=== PATIENT | male | born 1990 | race Caucasian/White ===

== ENCOUNTER 2017-07-20 11:11 | Emergency (ER) | payer OTHER ==
[~2017-07-20] VITALS: Ht 170.2 cm; Wt 70.3 kg
[2017-07-20 11:11] VITALS: BP 114/55
[2017-07-20] MEDS ORDERED: IBUP-1957 PO (11:38)
== END 2017-07-20 12:48 | disposition home or self-care (01) ==
LOC: ER 11:31
DX: J11.1 Influenza due to unidentified influenza virus with other respiratory manifestations (principal); F17.200 Nicotine dependence, unspecified, uncomplicated
CPT/HCPCS: 99282; 99406; A4606; Z7610

== ENCOUNTER 2019-05-27 13:47 | Emergency (ER) | payer OTHER ==
[~2019-05-27] VITALS: Ht 170.2 cm; Wt 68.0 kg
[~2019-05-27 13:47] MED LIST: IBUP-1957 PO
--- NOTE | 2019-05-27 13:54 | NUR ---
PT CAME INTO THE ED C/O DIZZINESS, +NV X TODAY, ANXIETY. PY AAOX4, VSS, BREATHING EVEN AND UNLABORED ON ROOM AIR. PT CONNECTED TO THE MONITOR AND POX.
[2019-05-27] MEDS ORDERED: LORAZEPAM 1 MG TABLET PO ONE (14:00)
[2019-05-27] MEDS ORDERED: LORAZEPAM 0.5 MG TABLET ONE (14:02)
--- NOTE | 2019-05-27 14:04 | NUR ---
FOSTER PA AT BEDSIDE FOR EVAL.
[2019-05-27 14:34] LABS: BASOPHILS % (AUTO) 0.5 % (0.0-2.0); EOSINOPHILS % (AUTO) 1.6 % (0.0-6.0); HEMATOCRIT 41 % (39-51); HEMOGLOBIN 14.1 g/dL (13.5-17.5); LYMPHOCYTES # (AUTO) 1.7 /CMM (0.8-4.8); LYMPHOCYTES % (AUTO) 27.4 % (20.0-44.0); MEAN CORPUSCULAR HGB CONC 34 g/dl (31.0-36.0); MEAN CORPUSCULAR VOLUME 83 fL (80-96); MONOCYTES # (AUTO) 0.6 /CMM (0.1-1.30); MONOCYTES % (AUTO) 9.3 % (2.0-12.0); NEUTROPHILS # (AUTO) 3.8 /CMM (1.8-8.9); NEUTROPHILS % (AUTO) 61.2 % (43.0-81.0); PLATELET COUNT (AUTO) 291 /CMM (150-450); RED BLOOD CELL COUNT(AUTO) 4.93 MIL/uL (4.5-6.0); WHITE BLOOD COUNT (AUTO) 6.2 K/uL (4.3-11.0)
[2019-05-27 14:44] LABS: CREATININE 0.6 mg/dL (0.6-1.3); POTASSIUM 3.6 mmol/L (3.5-5.1)
[2019-05-27 15:08] VITALS: BP 130/76
--- NOTE | 2019-05-27 15:08 | NUR ---
Patient discharged to home in stable condition. Written and verbal after care instructions given. Patient verbalizes understanding of instruction.
== END 2019-05-27 15:08 | disposition home or self-care (01) ==
LOC: ER 13:52
DX: F41.9 Anxiety disorder, unspecified (principal); F17.200 Nicotine dependence, unspecified, uncomplicated
CPT/HCPCS: 36415; 80048-TC; 85025-TC

== ENCOUNTER 2019-08-21 22:30 | Emergency (ER) | payer OTHER ==
[~2019-08-21] VITALS: Ht 170.2 cm; Wt 68.9 kg
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
[2019-08-21] MEDS ORDERED: IV NS 0.9% 1,000 ML BAG IV ONE (23:00)
[2019-08-21] MEDS ORDERED: METOCLOPRAMIDE HCL 10 MG/2 ML VIAL IV ONE (23:00)
[2019-08-21] MEDS ORDERED: METOCLOPRAMIDE HCL 10 MG/2 ML VIAL ONE (23:02)
--- NOTE | 2019-08-21 23:05 | NUR ---
PT BROUGHT BY RADIOLOGY TO CT
--- NOTE | 2019-08-21 23:40 | NUR ---
PT REFUSING TO FINISH IV FLUIDS. DR. MITCHELL MADE AWARE. PT MEDICALLY CLEARED FOR DISCHARGE.
--- NOTE | 2019-08-21 23:47 | NUR ---
Patient discharged to home in stable condition. Written and verbal after care instructions given. Patient verbalizes understanding of instruction.IV removed. Catheter intact and site benign. Pressure and 4x4 applied to site. No bleeding noted.Pt ambulatory with a steady gait
[2019-08-21 23:49] VITALS: BP 110/82
== END 2019-08-21 23:49 | disposition home or self-care (01) ==
LOC: ER 22:33
DX: F41.9 Anxiety disorder, unspecified (principal); R51 Headache; F32.9 Major depressive disorder, single episode, unspecified; F17.200 Nicotine dependence, unspecified, uncomplicated; Z79.899 Other long term (current) drug therapy
CPT/HCPCS: 70450; 93005; 96374; 99284; A4216; J2765; J7030

== ENCOUNTER 2022-04-13 22:22 | Emergency (ER) | payer OTHER ==
[~2022-04-13] VITALS: Ht 170.2 cm; Wt 72.6 kg
--- NOTE | 2022-04-13 23:30 | NUR ---
BIB PARTNER FOR C/O L KNEE PAIN AND INJURY , UNABLE TO EXTEND THE KNEE S/P FALL. PLACED COMFORTABLY IN BED. VITALS CHECKED.
[2022-04-13] MEDS ORDERED: HYDROMORPHONE INJ 2 MG/ML DISP.SYRIN ONE (23:59)
[2022-04-14] MEDS ORDERED: ONDANSETRON 4 MG TAB.RAPDIS ONE
[2022-04-14] MEDS ORDERED: ONDANSETRON 4 MG TAB.RAPDIS SL ONE
[2022-04-14] MEDS ORDERED: HYDROMORPHONE INJ 2 MG/ML DISP.SYRIN IM ONE
--- NOTE | 2022-04-14 | NUR ---
FOR XRAY OF KNEE. PATIENT CANNOT TOLERATE PAIN. REQUESTING PAIN MEDS PRIOR TO XRAY
[2022-04-14] MEDS ORDERED: ONDA4TAB5 PO (01:01)
[2022-04-14] MEDS ORDERED: HYDR-4209 PO (01:01)
[2022-04-14 02:12] VITALS: BP 118/72
== END 2022-04-14 02:13 | disposition home or self-care (01) ==
LOC: ER 22:24
DX: S83.92XA Sprain of unspecified site of left knee, initial encounter (principal); F41.9 Anxiety disorder, unspecified; F32.A Depression, unspecified; F17.210 Nicotine dependence, cigarettes, uncomplicated; Z79.1 Long term (current) use of non-steroidal anti-inflammatories (NSAID); X58.XXXA Exposure to other specified factors, initial encounter; Y93.89 Activity, other specified; Y92.89 Other specified places as the place of occurrence of the external cause; Y99.8 Other external cause status
CPT/HCPCS: 99284; 73552; 73560; 73590; 29505; 96372; J1170; A6403; Q0162

== ENCOUNTER → 2024-01-20 | Emergency (ER) | payer OTHER ==
[~2024-01-20] VITALS: Ht 170.2 cm; Wt 72.6 kg
[~2024-01-20] MED LIST changes: +HYDR-4209 PO; +MECL-159 PO; +MECLIZINE HCL 25 MG TABLET ONE; +ONDA4TAB5 PO
[2024-01-20 19:02] LABS: BASOPHILS # (AUTO) 0.1 K/uL (0.0-0.2); BASOPHILS % (AUTO) 0.9 % (0.0-2.0); EOSINOPHILS # (AUTO) 0.1 K/uL (0.0-0.7); EOSINOPHILS % (AUTO) 1.6 % (0.0-6.0); HEMATOCRIT 40 % (39-51); HEMOGLOBIN 13.8 g/dL (13.5-17.5); LYMPHOCYTES # (AUTO) 2.5 K/uL (0.8-4.8); LYMPHOCYTES % (AUTO) 30.6 % (20.0-44.0); MEAN CORPUSCULAR HEMOGLOBIN 29 PG (26.0-33.0); MEAN CORPUSCULAR HGB CONC 35 g/dl (31.0-36.0); MEAN CORPUSCULAR VOLUME 83 fL (80-96); MONOCYTES # (AUTO) 0.5 K/uL (0.1-1.30); MONOCYTES % (AUTO) 6.5 % (2.0-12.0); NEUTROPHILS % (AUTO) 60.4 % (43.0-81.0); PLATELET COUNT (AUTO) 352 K/uL (150-450); RED BLOOD CELL COUNT(AUTO) 4.81 MIL/uL (4.5-6.0); WHITE BLOOD COUNT (AUTO) 8.2 K/uL (4.3-11.0)
[2024-01-20 19:11] LABS: CARBON DIOXIDE 25 mmol/L (21-32); CHLORIDE 103 mmol/L (98-107); CREATININE 0.5 mg/dL (0.6-1.3); GLUCOSE 126 mg/dL (74-106); POTASSIUM 3.3 mmol/L (3.5-5.1); SODIUM SERUM 138 mmol/L (136-145); UREA NITROGEN, BLOOD 15 mg/dL (7-18)
[2024-01-20 19:22] LABS: ALANINE AMINOTRANSFERASE 94 U/L (12-78); ALBUMIN 3.3 g/dL (3.4-5.0); ALKALINE PHOSPHATASE 103 U/L (46-116); ASPARTATE AMINOTRANSFERASE 30 U/L (15-37); BILIRUBIN,DIRECT 0.1 mg/dL (0.0-0.2); BILIRUBIN,TOTAL 0.4 mg/dL (0.2-1.0); NT-PRO BNP 15 pg/mL (0-125); TOTAL PROTEIN, SERUM 7.3 g/dL (6.4-8.2)
[2024-01-20] MEDS: MECLIZINE HCL 25 MG TABLET PO ONE (19:29)
[2024-01-20 21:28] VITALS: BP 121/78; TEMP 97.7; O2SAT 100
== END | disposition home or self-care (01) ==
LOC: ER 18:13
DX: R42 Dizziness and giddiness (principal); R51.9 Headache, unspecified; F41.9 Anxiety disorder, unspecified; F32.A Depression, unspecified; F17.200 Nicotine dependence, unspecified, uncomplicated
CPT/HCPCS: 99285; 70450; 71045; 93005; 85025; 80048; 80076; 36415; 84484; 83880; 82962; J8597